=== PATIENT | male | born 2005 | race Caucasian/White ===

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

== ENCOUNTER 2023-11-16 13:49 | Emergency (ER) | payer OTHER ==
[2023-11-16 13:57] VITALS: BP 111/75; PULSE 81; RESP 20; TEMP 97.6; BMI 25.7
== END 2023-11-16 15:06 | disposition home or self-care (01) ==
LOC: JERFT 13:49
DX: R21 Rash and other nonspecific skin eruption (principal)
CPT/HCPCS: 99283-25